=== PATIENT | female | born 1990 | race Caucasian/White ===

== ENCOUNTER 2018-01-05 13:45 | Outpatient (RCR) | payer OTHER, SELFPAY ==
--- NOTE | 2017-11-17 13:26 | PT.OTN ---
Current Diagnoses Pain in right knee (11/17/17) Pain in left knee (11/17/17) Low back pain (11/17/17) Difficulty in walking, not elsewhere classified (11/17/17) Abnormal posture (11/17/17) Weakness (11/17/17) Transition note: On November 17, 2017 our therapy services consisting of Speech, Occupational, and Physical Therapy transitioned from the [employer] electronic documentation system to a new [employer] electronic documentation system.?? All documentation prior to November 17 can be found under [employer] saved data. From November 17 forward all medical record documentation will be in [employer] 6.1.
--- NOTE | 2017-11-17 17:05 | PT.OTN ---
Current Diagnoses Pain in right knee (11/17/17) Pain in left knee (11/17/17) Low back pain (11/17/17) Difficulty in walking, not elsewhere classified (11/17/17) Abnormal posture (11/17/17) Weakness (11/17/17) Physical Therapy Treatment Note PT-OP-A Visit Information Start: 11/17/17 12:02 Freq: Status: Active Protocol: Activity Type Activity Date Activity User E-Sign Co-Sign Detail Recorded Client Recorded Date Recorded By Document 11/17/17 16:43 [facility] [email or web address] 11/17/17 17:04 [facility] 11/17/17 16:43 Out-Patient Physical Therapy Visit Information [Visit Information] -Visit Type Treatment Note -Visit Note POC expires 12/25 PT-OP-C Subjective Start: 11/17/17 12:02 Freq: Status: Active Protocol: Activity Type Activity Date Activity User E-Sign Co-Sign Detail Recorded Client Recorded Date Recorded By Document 11/17/17 14:30 [facility] [email or web address] 11/17/17 17:05 [facility] 11/17/17 14:30 OP-PT Subjective [Patient Comments] -Patient Comments Compliance with HEP. Tried ice massage & knee pain flared up -Patient Reported Progress Same PT-OP-Q Treatments Start: 11/17/17 12:02 Freq: Status: Active Protocol: Activity Type Activity Date Activity User E-Sign Co-Sign Detail Recorded Client Recorded Date Recorded By Document 11/17/17 16:43 [facility] [email or web address] 11/17/17 17:04 [facility] 11/17/17 16:43 Therapeutic Exercises [Standing Exercises] 2 -Standing Exercise Name squats -Reps/Minutes 6 min -Comments pelvic faciliation 1 -Standing Exercise Name Lunges -Side bilateral -Reps/Minutes 6 min -Comments pelvic facilitation Therapeutic Activity [Therapeutic Activity] 1 -Name Weight shift to weigth acceptance for sit to stand -Reps/Minutes 10 min -Comments w/pelvic facilitation Manual Therapy Treatment [Soft Tissue Mobilization] 1 -Body Location patellar tendon -Mobilization Type Cross-Friction -Intensity/Depth Moderate [Joint Mobilizations] 3 -Joint innominate -Direction ER -Grade III -Comments prone & supine FM 2 -Joint tibfib -Direction AP -Grade III -Body Position Supine -Comments FM 1 -Joint tibofemoral -Grade III -Body Position Supine -Comments PA tibia & PA femur FM Strapping Treatment [Treatment] -Body Location KT tape B knees -Details of Treatment 3 Y strips PT-OP-T Assessment and Plan Start: 11/17/17 12:02 Freq: Status: Active Protocol: Activity Type Activity Date Activity User E-Sign Co-Sign Detail Recorded Client Recorded Date Recorded By Document 11/17/17 16:43 [facility] [email or web address] 11/17/17 17:04 [facility] 11/17/17 16:43 Physical Therapy Assessment [Assessment Summary] -Assessment Pt had significant difficulty maintaining lumbar neutral with squatting & difficulty with pelvic positioning with lunges. With attempt to re- educate weight acceptance, pt had tendency to twist her pelvis & lumbar spine. Pt had very mild immobility of L hip innominate into ER w/hip flexed but cont dec ER with hip extended. Physical Therapy Plan [Frequency and Duration] -Plan of Care End Date 12/25/17 [Next Visit Focus/Plan] -Next Visit Plan Ant hip release
--- NOTE | 2017-11-25 16:47 | PT.OTN ---
Current Diagnoses Pain in right knee (11/24/17) Pain in left knee (11/24/17) Low back pain (11/24/17) Difficulty in walking, not elsewhere classified (11/24/17) Abnormal posture (11/24/17) Weakness (11/24/17) Physical Therapy Treatment Note PT-OP-A Visit Information Start: 11/17/17 12:02 Freq: Status: Active Protocol: Document 11/25/17 16:21 [facility] (Rec: 11/25/17 16:30 [facility] [id number]) Out-Patient Physical Therapy Visit Information Visit Information Visit Type Treatment Note Visit Note POC expires 12/25/17 Visit Start Time 13:45 Visit Stop Time 14:30 Total Visit Minutes 45 Number of DIRECTOR OF WEB MARKETING Visits 0 PT-OP-C Subjective Start: 11/17/17 12:02 Freq: Status: Active Protocol: Document 11/25/17 16:21 [facility] (Rec: 11/25/17 16:30 [facility] [id number]) OP-PT Subjective Patient Comments Patient Comments Pt reports overall good week. Reports compliance with HEP. Notes she did 6 intervals of 20 sec of running and was sore by last one. PT-OP-Q Treatments Start: 11/17/17 12:02 Freq: Status: Active Protocol: Document 11/25/17 16:21 [facility] (Rec: 11/25/17 16:30 [facility] [id number]) Therapeutic Exercises Supine Exercises 1 Supine Exercise Name bridging Comments w/manual traction facilitaiton Standing Exercises 3 Standing Exercise Name hip hinge Reps/Minutes x10 2 Standing Exercise Name squats Reps/Minutes 2x10 Comments w/ cueing for posture 1 Standing Exercise Name Lunges Side bilateral Reps/Minutes 2x10 Comments pelvic facilitation Manual Therapy Treatment Soft Tissue Mobilization 2 Body Location iliacus & RF L Mobilization Type Sustained Pressure Intensity/Depth Moderate Joint Mobilizations 5 Joint hip Direction hip on axis ER L Comments FM 4 Joint sacral Direction caudal & PA Comments FM w/LTR 3 Joint innominate Direction ER & caudal Grade III Comments prone & supine FM PT-OP-T Assessment and Plan Start: 11/17/17 12:02 Freq: Status: Active Protocol: Document 11/25/17 16:43 [facility] (Rec: 11/25/17 16:46 [facility] [id number]) Physical Therapy Assessment Assessment Summary Assessment Pt had improved lumbar mechanics with squatting & lunging today. Pt required manual traction help achieve no pain during bridging. Pt cont to report pain around sacrococcygeal joint on L side . Physical Therapy Plan Frequency and Duration Frequency of Treatment 1x/Week Plan of Care End Date 12/25/17 Next Visit Focus/Plan Next Visit Plan Cont to work on Ant hip
--- NOTE | 2017-12-01 16:54 | PT.OTN ---
Current Diagnoses Pain in right knee (12/01/17) Pain in left knee (12/01/17) Low back pain (12/01/17) Difficulty in walking, not elsewhere classified (12/01/17) Abnormal posture (12/01/17) Weakness (12/01/17) Physical Therapy Treatment Note PT-OP-A Visit Information Start: 11/17/17 12:02 Freq: Status: Active Protocol: Document 12/01/17 16:47 [facility] (Rec: 12/01/17 16:53 [facility] [id number]) Out-Patient Physical Therapy Visit Information Visit Information Visit Type Treatment Note Visit Note POC expires 12/25/17 Visit Start Time 13:45 Visit Stop Time 14:30 Total Visit Minutes 45 Visit Number 9 total Number of SOFTWARE QUALITY ANALYST Visits 0 PT-OP-C Subjective Start: 11/17/17 12:02 Freq: Status: Active Protocol: Document 12/01/17 16:47 [facility] (Rec: 12/01/17 16:53 [facility] [id number]) OP-PT Subjective Patient Comments Patient Comments Reports back spasm thurs when bending down to picker feeder something in kitchen. Reports she went to chiro that day and helped some and he taped her back. Unsure if it has helped. Pt reports she did hike this weekend and her knees were swollen after. PT-OP-Q Treatments Start: 11/17/17 12:02 Freq: Status: Active Protocol: Document 12/01/17 16:47 [facility] (Rec: 12/01/17 16:53 [facility] [id number]) Manual Therapy Treatment Soft Tissue Mobilization 3 Body Location sartorius & TFL Mobilization Type Sustained Pressure Body Position Supine 2 Body Location iliacus & RF L Mobilization Type Sustained Pressure Intensity/Depth Moderate Joint Mobilizations 4 Joint sacral Direction caudal & PA Comments FM w/LTR 3 Joint innominate Direction ER & caudal & Ext Grade III Comments prone & supine FM Manual Techniques 1 Type R UPA w/deep breathing Body Location Thoracic PT-OP-T Assessment and Plan Start: 11/17/17 12:02 Freq: Status: Active Protocol: Document 12/01/17 16:47 [facility] (Rec: 12/01/17 16:53 [facility] [email or web address]) Physical Therapy Assessment Assessment Summary Assessment Pt cont to have impaired movement patterns with dec R thoracic PA mobility. Pt cont to be rotated at pelvis with dec elevation after mobs. Physical Therapy Plan Frequency and Duration Frequency of Treatment 1x/Week Plan of Care End Date 12/25/17 Next Visit Focus/Plan Next Visit Plan Cont to advance ER of LLE
--- NOTE | 2017-12-09 15:58 | PT.OTN ---
Current Diagnoses Pain in right knee (12/09/17) Pain in left knee (12/09/17) Low back pain (12/09/17) Difficulty in walking, not elsewhere classified (12/09/17) Abnormal posture (12/09/17) Weakness (12/09/17) Physical Therapy Treatment Note PT-OP-A Visit Information Start: 11/17/17 12:02 Freq: Status: Active Protocol: Document 12/09/17 15:48 [facility] (Rec: 12/09/17 15:58 [facility] [email or web address]) Out-Patient Physical Therapy Visit Information Visit Information Visit Type Treatment Note Visit Note POC expires 12/25/17 Visit Start Time 14:40 Visit Stop Time 15:40 Total Visit Minutes 60 Visit Number 10 total Number of BUSINESS PERFORMANCE ADVISOR Visits 0 PT-OP-C Subjective Start: 11/17/17 12:02 Freq: Status: Active Protocol: Document 12/09/17 15:48 [facility] (Rec: 12/09/17 15:58 [facility] [email or web address]) OP-PT Subjective Patient Comments Patient Comments Reports she hiked this weekend and she noticed her knees when going downhill. Reports she had pain in her back w/ sitting extended on the ground camping. PT-OP-Q Treatments Start: 11/17/17 12:02 Freq: Status: Active Protocol: Document 12/09/17 15:48 [facility] (Rec: 12/09/17 15:58 [facility] [id number]) Gait Training Gait Activity 1 Description up/down stairs Comments 5 in then 8 in in front of mirror with focus on pelvis, hip & knee position Manual Therapy Treatment Soft Tissue Mobilization 5 Body Location VMO Mobilization Type Other Comments active release L 4 Body Location QL Mobilization Type Rolling Intensity/Depth Moderate Joint Mobilizations 5 Joint hip Direction hip on axis ER L Comments FM 4 Joint sacral Direction caudal & PA Comments FM w/LTR 3 Joint innominate Direction ER & caudal & Ext Grade III Comments prone & supine FM Manual Techniques 2 Type Post depression COI & C/R into post depression PT-OP-T Assessment and Plan Start: 11/17/17 12:02 Freq: Status: Active Protocol: Document 12/09/17 15:48 [facility] (Rec: 12/09/17 15:58 [facility] [email or web address]) Physical Therapy Assessment Assessment Summary Assessment Pt has very poor stair mechanics up/down with RLE, but does well with mirror cueing with LLE. Pt had improved ER with mobilization, but cont to have significant limits. Physical Therapy Plan Frequency and Duration Frequency of Treatment 1x/Week Plan of Care End Date 12/25/17 Next Visit Focus/Plan Next Visit Plan Cont to work on LE strength & pelvic mobility Please Sign and Return: I have reviewed this Plan of Care and certify that the skilled therapy services above are required to meet the patient???s needs. Physician Signature Date Printed Name and Credentials Clinical Instructor Signature Printed Name and Credentials
--- NOTE | 2017-12-16 15:53 | PT.OTN ---
Current Diagnoses Pain in right knee (12/16/17) Pain in left knee (12/16/17) Low back pain (12/16/17) Difficulty in walking, not elsewhere classified (12/16/17) Abnormal posture (12/16/17) Weakness (12/16/17) Physical Therapy Treatment Note PT-OP-A Visit Information Start: 11/17/17 12:02 Freq: Status: Active Protocol: Document 12/16/17 15:41 [facility] (Rec: 12/16/17 15:53 [facility] [id number]) Out-Patient Physical Therapy Visit Information Visit Information Visit Type Treatment Note Visit Note POC expires 12/25/17 Visit Start Time 14:30 Visit Stop Time 15:15 Total Visit Minutes 45 Visit Number 11 total Number of VICE PRESIDENT SAFETY Visits 0 PT-OP-C Subjective Start: 11/17/17 12:02 Freq: Status: Active Protocol: Document 12/16/17 15:41 [facility] (Rec: 12/16/17 15:53 [facility] [id number]) OP-PT Subjective Patient Comments Patient Comments Reports she used her poles with hiking this weekend and that helped but has noticed inc inflammation in R>L knee. PT-OP-Q Treatments Start: 11/17/17 12:02 Freq: Status: Active Protocol: Document 12/16/17 15:41 [facility] (Rec: 12/16/17 15:53 [facility] [id number]) Therapeutic Exercises Sitting Exercises 2 Sitting Exercise Name pigeon stretch 1 Sitting Exercise Name self PA knee mob Equipment Used yoga strap Standing Exercises 5 Standing Exercise Name lunge pose 4 Standing Exercise Name warrior pose Comments focus on glute & no hyperext Manual Therapy Treatment Soft Tissue Mobilization 1 Body Location piriformis Mobilization Type Sustained Pressure Intensity/Depth Moderate Body Position Supine Comments from anterior with ER/IR & post Joint Mobilizations 5 Joint hip Direction hip on axis ER L Comments FM 4 Joint sacral Direction caudal & PA Comments FM w/LTR 1 Joint tibiofemoral Direction PA Comments FM Manual Techniques 3 Type mobilization of patellar tendon Body Position Supine PT-OP-T Assessment and Plan Start: 11/17/17 12:02 Freq: Status: Active Protocol: Document 12/16/17 15:41 [facility] (Rec: 12/16/17 15:53 [facility] [id number]) Physical Therapy Assessment Goals Six Impairment rec activities Short Term Goal (STG) Pt iwll be able to ride bike & do pool activities iwthout pain. STG Duration 10/29/17 Spotter Driver Goal (LTG) return to all rec activities with min pain LTG Duration 12/30/17 Five Impairment core Spotter Driver Goal (LTG) Pt will have improved core control as demonstrated by 11/21 LPM, 11/21 EFT & 11/21 VCT LTG Duration by 11/30/17 Four Impairment gait Short Term Goal (STG) normal gait pattern STG Duration 11/30/17 Spotter Driver Goal (LTG) normal running pattern LTG Duration 12/30/17 Three Impairment MMT Correction Goal (LTG) 11/21 to allow return to athletics LTG Duration 11/30/17 Two Impairment posture Short Term Goal (STG) good posture without cueing STG Duration Achieved One Impairment ability to sit Spotter Driver Goal (LTG) Pt able to sit without inc pain LTG Duration 11/30/17 Assessment Summary Assessment Pt requires cueing during yoga poses to inc glute activation in order to dec knee pain. Pt had improved hip ER with piriformis release anteriorly. Physical Therapy Plan Frequency and Duration Frequency of Treatment 1x/Week Plan of Care End Date 12/25/17 Next Visit Focus/Plan Next Note Type Progress Note Next Visit Plan Cont to work on LE strength & pelvic mobility Please Sign and Return: I have reviewed this Plan of Care and certify that the skilled therapy services above are required to meet the patient???s needs. Physician Signature Date Printed Name and Credentials Clinical Instructor Signature Printed Name and Credentials
--- NOTE | 2017-12-23 17:50 | PT.OTN ---
Current Diagnoses Pain in right knee (12/23/17) Pain in left knee (12/23/17) Low back pain (12/23/17) Difficulty in walking, not elsewhere classified (12/23/17) Abnormal posture (12/23/17) Weakness (12/23/17) Physical Therapy Treatment Note PT-OP-A Visit Information Start: 11/17/17 12:02 Freq: Status: Active Protocol: Document 12/23/17 13:00 [facility] (Rec: 12/23/17 17:48 [facility] [id number]) Out-Patient Physical Therapy Visit Information Visit Information Visit Type Progress Note Visit Start Time 13:00 Visit Stop Time 13:45 Total Visit Minutes 45 Visit Number 12 Number of VOIP NETWORK TECHNICIAN Visits 0 PT-OP-C Subjective Start: 11/17/17 12:02 Freq: Status: Active Protocol: Document 12/23/17 13:00 [facility] (Rec: 12/23/17 17:48 [facility] [id number]) OP-PT Subjective Patient Comments Patient Comments Reports she tried some jujitsu this weekend and her knees were swollen the next day and back was alittle sore. Reports she did some hiking and had pain with downhill only Patient Questionnaires Oswestry Low Back Index Oswestry Score 13 Oswestry Impairment 20 to 39% Impaired (Score 20- 39) PT-OP-J Posture/Palpation/Skin Start: 11/17/17 12:02 Freq: Status: Active Protocol: Document 12/23/17 13:00 [facility] (Rec: 12/23/17 17:50 [facility] [id number]) Posture Evaluation Omar Postural Classification System Vertebral Compression Test 3 Elbow Flexion Test 5 Lumbar Protective Mechanism Left AP 1 Lumbar Protective Mechanism Right AP 2 Lumbar Protective Mechanism Left PA 5 Lumbar Protective Mechanism Right PA 4 PT-OP-M Strength Start: 11/17/17 12:02 Freq: Status: Active Protocol: Document 12/23/17 13:00 [facility] (Rec: 12/23/17 17:48 [facility] [id number]) Hip Strength Hip Manual Muscle Testing Right Flexion (L2) 5 Normal Extension (S1) 4+ Good+ Abduction 5 Normal External Rotation 5 Normal Internal Rotation 5 Normal Comments pain with ext Left Flexion (L2) 5 Normal Extension (S1) 4+ Good+ Abduction 5 Normal External Rotation 5 Normal Internal Rotation 5 Normal Comments pain with ext Knee Strength Knee Manual Muscle Testing Right Flexion (S2) 5 Normal Extension (L3) 5 Normal Left Flexion (S2) 5 Normal Extension (L3) 5 Normal PT-OP-Q Treatments Start: 11/17/17 12:02 Freq: Status: Active Protocol: Document 12/23/17 13:00 [facility] (Rec: 12/23/17 17:48 [facility] [id number]) Therapeutic Exercises Standing Exercises 6 Standing Exercise Name gait at wall for post depression B Gait Training Gait Activity 2 Description in mirror & long hallway walking Comments focus on push off B especailly with L as she cont to ER pelvis Manual Therapy Treatment Soft Tissue Mobilization 4 Body Location QL/ES R Mobilization Type Rolling Intensity/Depth Moderate Joint Mobilizations 5 Joint hip Direction hip on axis ER L Comments FM 4 Joint sacral Direction caudal & PA Comments FM w/LTR 3 Joint innominate Direction ER & caudal & Ext Grade III Comments prone & supine FM PT-OP-T Assessment and Plan Start: 11/17/17 12:02 Freq: Status: Active Protocol: Document 12/23/17 13:00 [facility] (Rec: 12/23/17 17:48 [facility] [id number]) Physical Therapy Assessment Impairments Impairments Gait Pain ROM Soft Tissue Mobility Strength Goals Six Impairment rec activities Short Term Goal (STG) Pt iwll be able to ride bike & do pool activities iwthout pain. STG Duration 01/14/18-has not tried Binder Sorter Goal (LTG) return to all rec activities with min pain LTG Duration 02/03/18 Five Impairment core Binder Sorter Goal (LTG) Pt will have improved core control as demonstrated by 5/5 LPM, 5/5 EFT & 5/5 VCT LTG Duration 02/03/18-improving Four Impairment gait Short Term Goal (STG) normal gait pattern STG Duration 01/14/18 Binder Sorter Goal (LTG) normal running pattern LTG Duration 02/03/18 Three Impairment MMT Binder Sorter Goal (LTG) 5/5 to allow return to athletics LTG Duration 02/03/18-excellent progress One Impairment ability to sit Care Home Goal (LTG) Pt able to sit without inc pain LTG Duration 02/03/18 Assessment Summary Assessment Pt is improving significantly with her functional mobility and strength. She cont to be limited from her rec activities but is improving with her ability to participate during work demonstrations. Physical Therapy Plan Frequency and Duration Frequency of Treatment 1x/Week Duration of Treatment 6 weeks Plan of Care Start Date 12/23/17 Plan of Care End Date 02/03/18 Therapeutic Interventions Therapeutic Interventions Aquatic Therapy Gait Training Home Exercise Program Joint Mobilizations Manual Therapy Neuromuscular Re-education Soft Tissue Mobilization Taping Therapeutic Exercises Modalities Cold Pack/Ice Massage Electric Stimulation Hot Packs Ultrasound Next Visit Focus/Plan Next Note Type Treatment Note Next Visit Plan assess gait w/running Please Sign and Return: I have reviewed this Plan of Care and certify that the skilled therapy services above are required to meet the patient?s needs. Physician Signature Date Printed Name and Credentials Clinical Instructor Signature Printed Name and Credentials
--- NOTE | 2017-12-23 17:51 | PT.OPPOC ---
Current Diagnoses Pain in right knee (12/23/17) Pain in left knee (12/23/17) Low back pain (12/23/17) Difficulty in walking, not elsewhere classified (12/23/17) Abnormal posture (12/23/17) Weakness (12/23/17) Provider Visit Care Team Role Provider Type NATHALY Cohn Attending Provider Non-Staff Family Provider Primary Care Provider Specialty: Medical Address: [address] [place] [address], [id number] Email: Plan Of Care PT-OP-T Assessment and Plan Start: 11/17/17 12:02 Freq: Status: Active Protocol: Document 12/23/17 13:00 [facility] (Rec: 12/23/17 17:48 [facility] [id number]) Physical Therapy Assessment Impairments Impairments Gait Pain ROM Soft Tissue Mobility Strength Goals Six Impairment rec activities Short Term Goal (STG) Pt iwll be able to ride bike & do pool activities iwthout pain. STG Duration 01/14/18-has not tried Jumpbasting Collar Baster Goal (LTG) return to all rec activities with min pain LTG Duration 02/03/18 Five Impairment core Jumpbasting Collar Baster Goal (LTG) Pt will have improved core control as demonstrated by 5/5 LPM, 5/5 EFT & 5/5 VCT LTG Duration 02/03/18-improving Four Impairment gait Short Term Goal (STG) normal gait pattern STG Duration 01/14/18 Detention Goal (LTG) normal running pattern LTG Duration 02/03/18 Three Impairment MMT Detention Goal (LTG) 5/5 to allow return to athletics LTG Duration 02/03/18-excellent progress One Impairment ability to sit Jumpbasting Collar Baster Goal (LTG) Pt able to sit without inc pain LTG Duration 02/03/18 Assessment Summary Assessment Pt is improving significantly with her functional mobility and strength. She cont to be limited from her rec activities but is improving with her ability to participate during work demonstrations. Physical Therapy Plan Frequency and Duration Frequency of Treatment 1x/Week Duration of Treatment 6 weeks Plan of Care Start Date 12/23/17 Plan of Care End Date 02/03/18 Therapeutic Interventions Therapeutic Interventions Aquatic Therapy Gait Training Home Exercise Program Joint Mobilizations Manual Therapy Neuromuscular Re-education Soft Tissue Mobilization Taping Therapeutic Exercises Modalities Cold Pack/Ice Massage Electric Stimulation Hot Packs Ultrasound Next Visit Focus/Plan Next Note Type Treatment Note Next Visit Plan assess gait w/running Plan of Care Dates Plan of Care Start Date 12/23/17 Plan of Care End Date 02/03/18 Please Sign and Return: I have reviewed this Plan of Care and certify that the skilled therapy services above are required to meet the patient?s needs. Physician Signature Date Printed Name and Credentials Clinical Instructor Signature Printed Name and Credentials
--- NOTE | 2017-12-30 17:08 | PT.OTN ---
Current Diagnoses Pain in right knee (12/29/17) Pain in left knee (12/29/17) Low back pain (12/29/17) Difficulty in walking, not elsewhere classified (12/29/17) Abnormal posture (12/29/17) Weakness (12/29/17) Physical Therapy Treatment Note PT-OP-A Visit Information Start: 11/17/17 12:02 Freq: Status: Active Protocol: Document 12/29/17 13:45 [facility] (Rec: 12/29/17 17:39 [facility] [email or web address]) Out-Patient Physical Therapy Visit Information Visit Information Visit Type Treatment Note Visit Start Time 13:45 Visit Stop Time 14:30 Total Visit Minutes 45 Visit Number 13 Number of SHAKER WASHER Visits 0 PT-OP-C Subjective Start: 11/17/17 12:02 Freq: Status: Active Protocol: Document 12/29/17 13:45 [facility] (Rec: 12/29/17 17:39 [facility] [id number]) OP-PT Subjective Patient Comments Patient Comments Reports she hiked/ran up [place] and used her poles for down. Swelling in knees but overall okay. PT-OP-J Posture/Palpation/Skin Start: 11/17/17 12:02 Freq: Status: Active Protocol: Document 12/23/17 13:00 [facility] (Rec: 12/23/17 17:50 [facility] [email or web address]) Posture Evaluation Omar Postural Classification System Vertebral Compression Test 3 Elbow Flexion Test 5 Lumbar Protective Mechanism Left AP 1 Lumbar Protective Mechanism Right AP 2 Lumbar Protective Mechanism Left PA 5 Lumbar Protective Mechanism Right PA 4 PT-OP-M Strength Start: 11/17/17 12:02 Freq: Status: Active Protocol: Document 12/23/17 13:00 [facility] (Rec: 12/23/17 17:48 [facility] [email or web address]) Hip Strength Hip Manual Muscle Testing Right Flexion (L2) 5 Normal Extension (S1) 4+ Good+ Abduction 5 Normal External Rotation 5 Normal Internal Rotation 5 Normal Comments pain with ext Left Flexion (L2) 5 Normal Extension (S1) 4+ Good+ Abduction 5 Normal External Rotation 5 Normal Internal Rotation 5 Normal Comments pain with ext Knee Strength Knee Manual Muscle Testing Right Flexion (S2) 5 Normal Extension (L3) 5 Normal Left Flexion (S2) 5 Normal Extension (L3) 5 Normal PT-OP-Q Treatments Start: 11/17/17 12:02 Freq: Status: Active Protocol: Document 12/29/17 13:45 [facility] (Rec: 12/30/17 17:08 [facility] [email or web address]) Therapeutic Exercises Standing Exercises 6 Standing Exercise Name gait at wall for post depression B Gait Training Gait Activity 3 Description running outside with edu re: form Comments review video & review of plan for form Manual Therapy Treatment Soft Tissue Mobilization 4 Body Location QL/ES R Mobilization Type Rolling Intensity/Depth Moderate 2 Body Location iliacus & RF L Mobilization Type Sustained Pressure Intensity/Depth Moderate 1 Body Location piriformis Mobilization Type Sustained Pressure Intensity/Depth Moderate Body Position Supine Comments from anterior with ER/IR & post Joint Mobilizations 5 Joint hip Direction hip on axis ER L Comments FM 4 Joint sacral Direction caudal & PA Comments FM w/LTR 3 Joint innominate Direction ER & caudal & Ext Grade III Comments prone & supine FM PT-OP-T Assessment and Plan Start: 11/17/17 12:02 Freq: Status: Active Protocol: Document 12/29/17 13:45 [facility] (Rec: 12/29/17 17:39 [facility] [email or web address]) Physical Therapy Assessment Goals Six Impairment rec activities Short Term Goal (STG) Pt iwll be able to ride bike & do pool activities iwthout pain. STG Duration 01/14/18-has not tried Care Home Goal (LTG) return to all rec activities with min pain LTG Duration 02/03/18 Five Impairment core Drawer Maker Goal (LTG) Pt will have improved core control as demonstrated by 5/5 LPM, 5/5 EFT & 5/5 VCT LTG Duration 02/03/18-improving Four Impairment gait Short Term Goal (STG) normal gait pattern STG Duration 01/14/18 Care Home Goal (LTG) normal running pattern LTG Duration 02/03/18 Three Impairment MMT Drawer Maker Goal (LTG) 5/5 to allow return to athletics LTG Duration 02/03/18-excellent progress One Impairment ability to sit Care Home Goal (LTG) Pt able to sit without inc pain LTG Duration 02/03/18 Assessment Summary Assessment Pt is improving overall with mobility and was able to recognize with gait assesment & discussion how to improve running form. Improving hip mobility w/soft tissue. Physical Therapy Plan Frequency and Duration Frequency of Treatment 1x/Week Duration of Treatment 6 weeks Plan of Care Start Date 12/23/17 Plan of Care End Date 02/03/18 Next Visit Focus/Plan Next Note Type Treatment Note Next Visit Plan Post depression COI Please Sign and Return: I have reviewed this Plan of Care and certify that the skilled therapy services above are required to meet the patient?s needs. Physician Signature Date Printed Name and Credentials Clinical Instructor Signature Printed Name and Credentials
--- NOTE | 2018-01-05 17:03 | PT.OTN ---
Current Diagnoses Pain in right knee (01/05/18) Pain in left knee (01/05/18) Low back pain (01/05/18) Difficulty in walking, not elsewhere classified (01/05/18) Abnormal posture (01/05/18) Weakness (01/05/18) Physical Therapy Treatment Note PT-OP-A Visit Information Start: 11/17/17 12:02 Freq: Status: Active Protocol: Document 01/05/18 16:59 [facility] (Rec: 01/05/18 17:03 [facility] [email or web address]) Out-Patient Physical Therapy Visit Information Visit Information Visit Type Treatment Note Visit Start Time 13:45 Visit Stop Time 14:30 Total Visit Minutes 45 Visit Number 14 Number of BATHING SUIT MAKER Visits 0 PT-OP-C Subjective Start: 11/17/17 12:02 Freq: Status: Active Protocol: Document 01/05/18 16:59 [facility] (Rec: 01/05/18 17:03 [facility] [email or web address]) OP-PT Subjective Patient Comments Patient Comments Pt reports she hiked 3 days this weekend. Reports she did restortive yoga last tues and back has been painful since. PT-OP-J Posture/Palpation/Skin Start: 11/17/17 12:02 Freq: Status: Active Protocol: Document 12/23/17 13:00 [facility] (Rec: 12/23/17 17:50 [facility] [email or web address]) Posture Evaluation Omar Postural Classification System Vertebral Compression Test 3 Elbow Flexion Test 5 Lumbar Protective Mechanism Left AP 1 Lumbar Protective Mechanism Right AP 2 Lumbar Protective Mechanism Left PA 5 Lumbar Protective Mechanism Right PA 4 PT-OP-M Strength Start: 11/17/17 12:02 Freq: Status: Active Protocol: Document 12/23/17 13:00 [facility] (Rec: 12/23/17 17:48 [facility] [email or web address]) Hip Strength Hip Manual Muscle Testing Right Flexion (L2) 5 Normal Extension (S1) 4+ Good+ Abduction 5 Normal External Rotation 5 Normal Internal Rotation 5 Normal Comments pain with ext Left Flexion (L2) 5 Normal Extension (S1) 4+ Good+ Abduction 5 Normal External Rotation 5 Normal Internal Rotation 5 Normal Comments pain with ext Knee Strength Knee Manual Muscle Testing Right Flexion (S2) 5 Normal Extension (L3) 5 Normal Left Flexion (S2) 5 Normal Extension (L3) 5 Normal PT-OP-Q Treatments Start: 11/17/17 12:02 Freq: Status: Active Protocol: Document 01/05/18 16:59 [facility] (Rec: 01/05/18 17:03 [facility] [email or web address]) Therapeutic Exercises Sitting Exercises 3 Sitting Exercise Name tibial IR Resistance Lvl 2 Other Exercises 1 Other Exercise Name Review of yoga poses including fwd bend & encouraged dec lordosis w/poses Manual Therapy Treatment Soft Tissue Mobilization 4 Body Location QL/ES B Mobilization Type Rolling Intensity/Depth Moderate 1 Body Location piriformis & obturator Mobilization Type Sustained Pressure Intensity/Depth Moderate Body Position Prone Joint Mobilizations 5 Joint hip Direction hip on axis ER L Comments FM 4 Joint sacral Direction caudal & PA Comments FM w/LTR 3 Joint innominate Direction ER & caudal & Ext Grade III Comments prone & supine FM Taping 1 Body Location Juarez taping for tibial IR PT-OP-T Assessment and Plan Start: 11/17/17 12:02 Freq: Status: Active Protocol: Document 01/05/18 16:59 [facility] (Rec: 01/05/18 17:03 [facility] [email or web address]) Physical Therapy Assessment Goals Six Impairment rec activities Short Term Goal (STG) Pt iwll be able to ride bike & do pool activities iwthout pain. STG Duration 01/14/18-has not tried Skilled Nursing Goal (LTG) return to all rec activities with min pain LTG Duration 02/03/18 Five Impairment core Regional Telecommunications Specialist Goal (LTG) Pt will have improved core control as demonstrated by 5/5 LPM, 5/5 EFT & 5/5 VCT LTG Duration 02/03/18-improving Four Impairment gait Short Term Goal (STG) normal gait pattern STG Duration 01/14/18 Skilled Nursing Goal (LTG) normal running pattern LTG Duration 02/03/18 Three Impairment MMT Regional Telecommunications Specialist Goal (LTG) 5/5 to allow return to athletics LTG Duration 02/03/18-excellent progress One Impairment ability to sit Skilled Nursing Goal (LTG) Pt able to sit without inc pain LTG Duration 02/03/18 Assessment Summary Assessment Improved back pain slightly with MET & shotgun MET. Pt had no pain in knee with taping into IR with tibia Physical Therapy Plan Frequency and Duration Frequency of Treatment 1x/Week Plan of Care End Date 02/03/18 Next Visit Focus/Plan Next Note Type Discharge Summary Next Visit Plan d/c d/t pt moving; review HEP as needed 3
--- NOTE | 2018-01-25 09:51 | PT.OPDS ---
Current Diagnoses Pain in right knee (01/05/18) Pain in left knee (01/05/18) Low back pain (01/05/18) Difficulty in walking, not elsewhere classified (01/05/18) Abnormal posture (01/05/18) Weakness (01/05/18) Provider Visit Care Team Role Provider Type NATHALY Cohn Attending Provider Non-Staff Family Provider Primary Care Provider Specialty: Medical Address: [address] [place] [address], [facility] Email: Visit Number Visit Number 14 Discharge Summary PT-OP-C Subjective Start: 11/17/17 12:02 Freq: Status: Active Protocol: Document 01/05/18 16:59 [facility] (Rec: 01/05/18 17:03 [facility] [id number]) OP-PT Subjective Patient Comments Patient Comments Pt reports she hiked 3 days this weekend. Reports she did restortive yoga last tues and back has been painful since. PT-OP-J Posture/Palpation/Skin Start: 11/17/17 12:02 Freq: Status: Active Protocol: Document 12/23/17 13:00 [facility] (Rec: 12/23/17 17:50 [facility] [id number]) Posture Evaluation Omar Postural Classification System Vertebral Compression Test 3 Elbow Flexion Test 5 Lumbar Protective Mechanism Left AP 1 Lumbar Protective Mechanism Right AP 2 Lumbar Protective Mechanism Left PA 5 Lumbar Protective Mechanism Right PA 4 PT-OP-M Strength Start: 11/17/17 12:02 Freq: Status: Active Protocol: Document 12/23/17 13:00 [facility] (Rec: 12/23/17 17:48 [facility] [id number]) Hip Strength Hip Manual Muscle Testing Right Flexion (L2) 5 Normal Extension (S1) 4+ Good+ Abduction 5 Normal External Rotation 5 Normal Internal Rotation 5 Normal Comments pain with ext Left Flexion (L2) 5 Normal Extension (S1) 4+ Good+ Abduction 5 Normal External Rotation 5 Normal Internal Rotation 5 Normal Comments pain with ext Knee Strength Knee Manual Muscle Testing Right Flexion (S2) 5 Normal Extension (L3) 5 Normal Left Flexion (S2) 5 Normal Extension (L3) 5 Normal PT-OP-T Assessment and Plan Start: 11/17/17 12:02 Freq: Status: Active Protocol: Document 01/25/18 09:50 [facility] (Rec: 01/25/18 09:51 [facility] [id number]) Physical Therapy Assessment Goals Six Impairment rec activities Short Term Goal (STG) Pt iwll be able to ride bike & do pool activities iwthout pain. STG Duration achieved Residential Goal (LTG) return to all rec activities with min pain LTG Duration 02/03/18-improving Five Impairment core Residential Goal (LTG) Pt will have improved core control as demonstrated by / LPM, / EFT & 5 VCT LTG Duration 02/03/18-improving Four Impairment gait Short Term Goal (STG) normal gait pattern STG Duration achieved Engineering Psychologist Goal (LTG) normal running pattern LTG Duration 02/03/18-improving Three Impairment MMT Engineering Psychologist Goal (LTG) 11/21 to allow return to athletics LTG Duration 02/03/18-excellent progress One Impairment ability to sit Residential Goal (LTG) Pt able to sit without inc pain LTG Duration 02/03/18 Assessment Summary Assessment Pt had made great progress with progression to functional activities, but had to cancel last appt d/t dislocating L knee. Pt was to follow up with ortho then was moving to [place]. Physical Therapy Plan Discharge Physical Therapy Discharge Reasons No Longer Attending PT Discharge Comments Pt moving
== END 2018-01-06 11:04 ==
LOC: PHYS 13:45
PROVIDERS: Family Provider Nurse Practitioner Family; PCP Nurse Practitioner Family; Visit Provider Nurse Practitioner Family
DX: M54.5 Low back pain (principal); R26.2 Difficulty in walking, not elsewhere classified; M25.561 Pain in right knee; M25.562 Pain in left knee; R29.3 Abnormal posture; R53.1 Weakness
CPT/HCPCS: 29530; 97110; 97116; 97140; 97530

== ENCOUNTER 2018-01-09 11:29 | Emergency (ER) | payer OTHER, SELFPAY ==
[2018-01-09 11:30] VITALS: BP 130/60; PULSE 115; RESP 20; TEMP 36.9; O2SAT 98; BMI 20.9
[2018-01-09] MEDS: fentaNYL 100 MCG/2 ML INJ 25 MCG IV (11:46)
--- NOTE | 2018-01-09 11:49 | ED.LOWEXIN ---
HPI - Extremity Injury (Lower) General Chief Complaint: Extremity Injury, Lower Stated Complaint: left knee pain Time Seen by Provider: 01/09/18 11:49 Source: patient Mode of arrival: wheelchair Limitations: no limitations History of Present Illness HPI Narrative: 27-year-old otherwise healthy female here for evaluation of left knee injury. Patient states that she got her foot caught in something while she was moving today and then fell backwards. Has an obvious deformity to the left knee. Related Data Home Medications Medication Instructions Recorded Confirmed albuterol sulfate [Ventolin HFA] 1 puff INH PRN PRN #0 05/19/16 levonorgestrel [Mirena] 52 mg INTRAU #0 06/27/16 Allergies Allergy/AdvReac Type Severity Reaction Status Date / Time No Known Drug Allergies Allergy Verified 01/09/18 11:33 Review of Systems Constitutional Denies fatigue and Denies fever(s) Musculoskeletal Comments: Deformity pain the left knee Integumentary/Breasts Denies lesions, Denies rash and Denies wounds Neurologic Comments: No numbness tingling left lower extremity Endocrine Denies fatigue Hematologic/Lymphatic Denies easy bleeding and Denies easy bruising [facility] Surgical History History of third molar tooth extraction Exam Initial Vital Signs Initial Vital Signs: Vital Signs Temperature 98.4 F 01/09/18 11:30 Pulse Rate 115 H 01/09/18 11:30 Respiratory Rate 20 01/09/18 11:30 Blood Pressure 130/60 H 01/09/18 11:30 Pulse Oximetry 98 01/09/18 11:30 Const General: cooperative, healthy appearing, well developed, well groomed and No acute distress HENNY Head: normal to inspection and normocephalic Cardio Pulses: dorsalis pedis present on the left Skin Lesions: no lesions Rashes: no rashes Neuro Other: Sensation intact to light touch left lower extremity Extrem Other: Left hip unremarkable Left ankle left foot unremarkable Patient with obvious deformity with lateral displacement of the patella. Procedures Orthopedic Joint Reduction Joint #1: Time Out Performed: Yes Side: left Joint Reduction Location: knee/patella Analgesia: other (25 mcg fentanyl) Post-reduction neuro exam: intact Post-reduction vascular: intact Post Reduction X-Ray Obtained: No Splint Applied: Yes Patient Tolerated Procedure: Well and No complications Course Orders Ordered: ED Orders 01/09/18 11:33 XR knee LT 3V Stat Discontinued Medications Fentanyl (Sublimaze) 25 mcg IV NOW ONE Stop: 01/09/18 11:50 Last Admin: 01/09/18 11:46 Dose: 25 mcg Vital Signs - 8 hr 01/09/18 11:30 Temperature 98.4 F Pulse Rate 115 H Respiratory Rate 20 Blood Pressure 130/60 H Pulse Oximetry 98 MDM - Extremity Injury (Lower) MDM Narrative Medical decision making narrative: Patient with history and physical exam consistent with a obvious left patella lateral dislocation. Physical exam is not consistent with a knee dislocation. The patella was reduced without problems. Knee immobilizer placed. Patient has crutches from home. Patient is neurovascularly intact. Will hold on any x-rays for now secondary to the obvious diagnosis. Patient was given follow-up instructions with her primary doctor and also with the orthopedic group. Down. She was given return precautions. She expressed understanding and agreement with plan. Discharge Plan Departure Patient Disposition: Home, Self-Care Clinical Impression: Dislocation of patella, left, closed Instructions: How To Perform RICE (Rest, Ice, Compress, Elevate), DI for Patellar Dislocation Activity Restrictions/Additional Instructions: Keep the knee immobilizer on like we discussed. Call the [facility]opedic group at [phone] on Thursday for follow-up. Also contact your primary care doctor for a follow-up. Keep your leg elevated as much as possible. Return to the emergency department for any new or worsening symptoms Prescriptions: No Action albuterol sulfate [Ventolin HFA] 90 MCG/PUFF HFA aerosol inhaler 1 puff INH PRN PRNQty: 0 RF: 0 levonorgestrel [Mirena] 1 EACH intrauterine device 52 mg INTRAU Qty: 0 RF: 0
--- NOTE | 2018-01-09 11:55 | PC.NURSE ---
patella dislocated laterally
[2018-01-09 12:35] VITALS: BP 129/70; PULSE 59; RESP 16; O2SAT 100
--- NOTE | 2018-01-09 12:56 | PC.NURSE ---
patient has own crutches
== END 2018-01-09 12:35 | disposition home or self-care (01) ==
PROVIDERS: Emergency Provider Emergency Medicine; Family Provider Nurse Practitioner Family; PCP Nurse Practitioner Family
DX: S83.005A Unspecified dislocation of left patella, initial encounter (principal); W01.0XXA Fall on same level from slipping, tripping and stumbling without subsequent striking against object, initial encounter
CPT/HCPCS: 96374; 99283; 99284; J3010